=== PATIENT | male | born 1935 | race Caucasian/White ===

== ENCOUNTER 2018-04-21 08:03 | Day surgery (SDC) | payer OTHER, BC ==
[2018-04-20 12:16] VITALS: BMI 22.4
[2018-04-21] MEDS ORDERED: MIDAZOLAM HCL 2 MG/2 ML SINGLE DOSE VIAL ONE (10:22)
[2018-04-21] MEDS ORDERED: PROPOFOL 20 ML ONE (10:22)
[2018-04-21] MEDS ORDERED: ONDANSETRON 4 MG/2 ML VIAL IVPUSH PRN (11:41)
[2018-04-21] MEDS ORDERED: oxyCODONE HCL 5 MG TABLET PO PRN ×2 (11:41)
--- NOTE | 2018-04-21 11:41 | OP ---
Operative Note - Note: Operative Date: 04/21/18 Pre-Operative Diagnosis: BPH with urinary retention Operation: cysto/bipolar TURVP/TURP Post-Operative Diagnosis: Same as Pre-op Surgeon: Rony Diaz Anesthesia: Spinal Specimens Removed: prostate chips Operative Report Dictated: Yes
[2018-04-21] MEDS ORDERED: DEXTROSE 5%-0.45% SALINE 1,000 ML IV SCH (11:45)
[2018-04-21] MEDS ORDERED: LACTATED RINGERS SOLUTION 1,000 ML IV SCH (11:45)
[2018-04-21 13:51] VITALS: PULSE 50
[2018-04-21 15:46] VITALS: BP 145/60; TEMP 99
--- NOTE | 2018-04-22 07:19 | OP ---
DATE OF OPERATION: 04/21/2018 PREOPERATIVE DIAGNOSIS: Benign prostatic hypertrophy with urinary retention. POSTOPERATIVE DIAGNOSIS: Benign prostatic hypertrophy with urinary retention. PROCEDURE: Cystoscopy, bipolar transurethral vaporization and resection of prostate. SURGEON: Lucrecia Villagomez MD INDICATIONS: The patient is an 83-year-old male with BPH, urinary retention, and overflow incontinence who after reviewing treatment options elected to undergo bipolar transurethral vaporization and resection of prostate. The risks, benefits, and alternatives were discussed including worsening of incontinence, stricture formation, potential need for additional procedures, and potential lack of improvement of symptoms. DESCRIPTION OF PROCEDURE: After informed consent was obtained, the patient was taken to the OR and placed supine upon the table. After cardiac monitoring was administered, spinal anesthetic was given. He was prepped and draped in the dorsal lithotomy position. The StorRadioRx resectoscope was inserted into the urethra without difficulty with the . The prostatic urethra was 4 cm and visually occlusive. The bladder was visualized. No tumors or stones noted in the bladder. At this point using the bipolar loop, the prostate tissue was resected circumferentially until a wide-open channel was created, and resection was carried out within 1 cm of the verumontanum to minimize incontinence. At this point then using the button electrode, the tissue was vaporized and then cauterized until there was no evidence of active bleeding. All prostate chips were removed with Ellik evacuator and sent to Pathology for analysis. With the resectoscope passed to the verumontanum looking to bladder, a wide open channel was created. Resectoscope was then removed, and a 24-Kazakh Pagan was then placed to straight drainage. Clear urine was retrieved. The patient was awoken from anesthesia and transferred to recovery in stable condition. There were no complications. Estimated blood loss was minimal. LUCRECIA VILLAGOMEZ M.D. [id number]
--- NOTE | 2018-04-24 17:02 | PATH ---
Surgical Pathology Report Patient Name: NURIA DOUGLASS [facility]. Rec. #: [id number] /Age/Gender: 1935 (Age: 83) / M Account: [id number] Location: [facility] SURGICAL Taken: 04/21/2018 Received: 04/21/2018 Reported: 04/24/2018 Physicians: Rony Diaz M.D. Specimen(s) Received PROSTATE TISSUE Clinical History BPH Final Diagnosis PROSTATE, TRANSURETHRAL RESECTION OF PROSTATE: BENIGN PROSTATIC TISSUE WITH FOCAL ACUTE AND CHRONIC INFLAMMATION, ACINAR ATROPHY, CYSTIC CHANGES, GLANDULAR AND STROMAL HYPERPLASIA. Electronically Signed Saira Guy M.D. Gross Description Received in formalin labeled "prostate tissue," is a 7 g, 7.0 x 5.3 x 0.6 cm aggregate of lin, firm to rubbery portions of tissue, consistent with prostate chips. The specimen is entirely submitted in 8 cassettes. /04/21/2018 saudi04/21/2018
== END 2018-04-21 15:40 | disposition home or self-care (01) ==
LOC: JASU-SURG 08:03
PROVIDERS: ATTEND Urology
PROC: 0VT08ZZ Resection of Prostate, Via Natural or Artificial Opening Endoscopic (ICD-10-PCS; principal; 2018-04-21 09:30)
DX: N40.1 Benign prostatic hyperplasia with lower urinary tract symptoms (principal); R33.8 Other retention of urine
CPT/HCPCS: 94760; 99281-25

== ENCOUNTER 2018-04-21 23:44 | Emergency (ER) | payer OTHER, BC ==
[2018-04-22 00:29] VITALS: BP 160/81; PULSE 78; TEMP 98.3; BMI 22.9
--- NOTE | 2018-04-22 00:38 | PDOC ---
History of Present Illness - General History Source: Patient, Family - History of Present Illness Initial Comments: 04/22/18 00:33 83 y/o m with h/o turp done today because patient son was unable to empty his bag. Denies fever, chills, Reports that they are aware that patient is going to have hematuria <Daniel Nettles - Last Filed: 04/23/18 06:56> <Gordy Landaverde - Last Filed: 04/23/18 22:40> - General Chief Complaint: Urinary Catheter Problem Stated Complaint: URINARY CATHETER PROBLEM Time Seen by Provider: 04/22/18 00:12 Past History - Past Medical History Anemia: Yes Asthma: No Cancer: No Cardiac Disorders: Yes (bradycardia) CVA: No COPD: No CHF: No Dementia: Yes Diabetes: No GI Disorders: No Disorders: Yes (turp) HTN: Yes (ASHD) Hypercholesterolemia: No Liver Disease: No Seizures: No Thyroid Disease: No - Surgical History Appendectomy: No Cardiac Surgery: No Cholecystectomy: No Lung Surgery: No Neurologic Surgery: No Orthopedic Surgery: No - Suicide/Smoking/Psychosocial Hx Smoking History: Never smoked Have you smoked in the past 12 months: No Information on smoking cessation initiated: No Hx Alcohol Use: No Drug/Substance Use Hx: No Substance Use Type: None Hx Substance Use Treatment: No <Daniel Nettles - Last Filed: 04/23/18 06:56> <Gordy Landaverde - Last Filed: 04/23/18 22:40> - Past Medical History Allergies/Adverse Reactions: Allergies Allergy/AdvReac Type Severity Reaction Status Date / Time No Known Allergies Allergy Verified 04/22/18 00:22 Home Medications: Ambulatory Orders Aspirin [Ecotrin] 81 mg PO DAILY 04/20/18 Donepezil HCl 10 mg PO DAILY 04/20/18 Lisinopril [Zestril] 2.5 mg PO DAILY 04/20/18 Namenda - 10 mg PO BID 04/20/18 Review of Systems - Review of Systems Able to Perform ROS?: Yes Constitutional: No: Chills, Fever ABD/GI: No: Abdominal Distended, Blood Streaked Bowels, Nausea, Vomiting : Yes: Hematuria <Gordy Landaverde - Last Filed: 04/23/18 22:40> *Physical Exam - Vital Signs Last Vital Signs Temp Pulse Resp BP Pulse Ox 98.3 F 78 18 160/81 98 04/22/18 00:23 04/22/18 00:23 04/22/18 00:23 04/22/18 00:23 04/22/18 00:23 - Physical Exam Male Genitalia: positive: other (melendez cath present, hematuria, melendez draining properly ) <Daniel Nettles - Last Filed: 04/23/18 06:56> - Vital Signs Last Vital Signs Temp Pulse Resp BP Pulse Ox 98.3 F 78 18 160/81 98 04/22/18 00:23 04/22/18 00:23 04/22/18 00:23 04/22/18 00:23 04/22/18 00:23 - Physical Exam General Appearance: Yes: Nourished, Appropriately Dressed. No: Apparent Distress Gastrointestinal/Abdominal: positive: Flat, Soft. negative: Tender, Distended, Guarding, Rebound <Gordy Landaverde - Last Filed: 04/23/18 22:40> Medical Decision Making - Medical Decision Making 04/22/18 00:36 83 y/o m with h/o turp done today because patient son was unable to empty his bag. Denies fever, chills, Reports that they are aware that patient is going to have hematuria bag changed. explained to son how to empty bag. Discussed with dr landaverde, patient can be discharged <Daniel Nettles - Last Filed: 04/23/18 06:56> *DC/Admit/Observation/Transfer - Discharge Dispostion Decision to Admit order: No <Daniel Nettles - Last Filed: 04/23/18 06:56> <Gordy Landaverde - Last Filed: 04/23/18 22:40> Diagnosis at time of Disposition: Malfunction of Melendez catheter Qualifiers: Encounter type: initial encounter Qualified Code(s): T83.011A - Breakdown ( mechanical) of indwelling urethral catheter, initial encounter - Discharge Dispostion Disposition: HOME Condition at time of disposition: Stable - Patient Instructions Printed Discharge Instructions: How to Care for Your Melendez Catheter -- Male Additional Instructions: follow up with your urologist. If develops pain, melendez stops draining go to nearest hospital
--- NOTE | 2018-04-22 00:40 | PDOC ---
Attending Attestation - Resident Resident Name: Daniel Nettles - ED Attending Attestation I have performed the following: I have examined & evaluated the patient, The case was reviewed & discussed with the resident, I agree w/resident's findings & plan, Exceptions are as noted - HPI HPI: 04/22/18 00:38 83y hx of htn, dementia sp turp presents with concern for obstructed urine bag - pt has an indwelling cathter, and son thought that it was clogged so presented to evaluation. pt denie sany complaints abd soft nontender catheter in place with bag noted for dark bloody urine bag changed currently fucntiong well draining wine colored urine (pt s/p recently sp TURP) will dc with pmd fu with urology fu on tuesday - Physicial Exam PE: 04/23/18 20:18 see above - Medical Decision Making 04/23/18 20:18 see above
== END 2018-04-22 00:40 | disposition home or self-care (01) ==
LOC: JER 23:44
DX: T83.011A Breakdown (mechanical) of indwelling urethral catheter, initial encounter (principal); Z98.890 Other specified postprocedural states; I25.10 Atherosclerotic heart disease of native coronary artery without angina pectoris; I10 Essential (primary) hypertension; F03.90 Unspecified dementia, unspecified severity, without behavioral disturbance, psychotic disturbance, mood disturbance, and anxiety; R00.1 Bradycardia, unspecified; Z86.2 Personal history of diseases of the blood and blood-forming organs and certain disorders involving the immune mechanism
CPT/HCPCS: 99281-25